=== PATIENT | male | born 1965 | race Caucasian/White ===

== ENCOUNTER 2017-01-02 17:27 | Emergency (ER) | payer OTHER ==
--- NOTE | ~2017-01-02 | ER ---
PATIENT'S NAME: NAE MURRELL [facility] AGE: 51 Y [address] ROOM: [place] [id number] LOCATION: [facility] ADMIT DATE: 01/02/2017 ER/Outpatient Report DISCHARGE DATE: 01/02/2017 FAMILY PHYSICIAN: Devan Buckley MD ATTENDING PHYSICIAN: Bonifacio Lees HISTORY OF PRESENT ILLNESS: This patient is a 51-year-old male, who comes in with heat exhaustion. Lightheaded, generalized weakness with headache. The patient saw Dr. Lees initially. See Dr. Lees's dictation in regard to the chief complaint, history of present illness, past medical history, physical exam. Dr. Lees transferred the patient's care to me at shift change. Dr. Lees asked me to follow up with the patient's laboratory studies, results, final diagnosis, and treatment plan. The patient was started on IV normal saline hydration. The patient received 2 L of normal saline in the emergency department. The patient's CMS was normal except for a slightly elevated sodium 147, elevated chloride of 117, low potassium of 3.2, elevated glucose 115, low calcium of 8.3. White count was 6100, 64 segs, 31 lymphs, 4 monos, 1 eosinophil. Hemoglobin is 13.1 with hematocrit 37.6, platelet count is 157,000. IMPRESSION: Heat exhaustion. PLAN: The patient was hydrated. He was given 2 L normal saline IV in the emergency room. The patient was able to stand, walk, felt markedly improved. Discharged home. Observation. Activity as tolerated. Fluids. Good hydration. Diet as tolerated. Rest. Continue present home medications and care. Follow up with personal physician as needed. MD CARIN DOUGLAS/modl /[id number] d: 01/02/172036 t: 01/11/171823, OUTPATIENT REPORT
--- NOTE | ~2017-01-02 | ER ---
PATIENT'S NAME: NYASIA NAE [facility] AGE: 51 Y [address] ROOM: [place] [address] LOCATION: ED ADMIT DATE: 01/02/2017 ER/Outpatient Report DISCHARGE DATE: 01/02/2017 FAMILY PHYSICIAN: Devan Buckley MD ATTENDING PHYSICIAN: Bonifacio Torrez CHIEF COMPLAINT: Heat illness. HISTORY OF PRESENT ILLNESS: The patient drove from [place] to [place] today. This afternoon, he had spent 3 or 4 hours outside working. He has only had junk food and pop today. He began to feel extremely weak and dizzy and thus called the ambulance. He arrives by ambulance to the emergency department from [place]. He denies any particular medical history other than prior closed head injury and the issues stemming from that. SOCIAL HISTORY: Denies any smoking, alcohol, or drug use. ALLERGIES: PENICILLIN AND KEFLEX. MEDICATIONS: Sertraline. REVIEW OF SYSTEMS: All systems reviewed and negative except as noted in the HPI. PHYSICAL EXAMINATION: VITAL SIGNS: Blood pressure 176/91, pulse 82, respiratory rate is 20, temperature 96.2, rectal SpO2 is 97% on room air. GENERAL: Age-appropriate male. No obvious pain or distress. Tired appearance. NEURO: The patient is awake and alert. GCS is 15. No focal deficits. No asymmetry on exam. No abnormal cognition. HEENT: Normocephalic and atraumatic. Eyes are PERRL. Oropharynx is slightly dry. No erythema or exudates. NECK: Supple. Trachea is midline. CHEST: Heart is regular rate and rhythm with no murmurs. LUNGS: Clear to auscultation bilaterally. No rhonchi, wheezes, or rales. ABDOMEN: Soft, nontender, and nondistended. No rebound or guarding. BACK: Back is normal to inspection and palpation. EXTREMITIES: Cool and diaphoretic, but otherwise well-perfused with brisk capillary refill. PATIENT'S NAME: [facility] AGE: 51 Y [address] ROOM: [place] [address] LOCATION: ED ADMIT DATE: 01/02/2017 ER/Outpatient Report DISCHARGE DATE: 01/02/2017 FAMILY PHYSICIAN: Devan Buckley MD ATTENDING PHYSICIAN: Bonifacio Torrez SKIN: Clean and intact. LABORATORY DATA AND X-RAYS: Labs and x-rays are pending. IMPRESSION: Likely heat exhaustion. EMERGENCY DEPARTMENT COURSE: The patient was seen and evaluated. Continued EMS liter, he was given a second liter. His core temperature is not elevated. He is not having heat stroke. Anticipate home if appropriate labs. No imaging is required at this time. Please see dictation from Dr. Hall for completion of ER encounter. BONIFACIO TORREZ MD JH/sarahl /[id number] d: 01/03/17 1038 t: 01/04/17 1125, OUTPATIENT REPORT
[2017-01-02 17:56] LABS: BASOPHIL % 0.3 %; EOSINOPHIL % 0.7 %; HEMATOCRIT 37.6 % (37.0-53.0); HEMOGLOBIN 13.1 g/dL (12.0-17.0); IMMATURE GRANULOCYTE % 0.5 %; LYMPHOCYTE # 1.9 K/uL (0.8-4.0); LYMPHOCYTE % 30.9 %; MCH 31.6 pg (27.0-34.0); MCHC 34.8 gm/dL (32.0-36.5); MCV 90.8 fl (83.0-98.0); MONOCYTE # 0.2 K/uL (0.0-1.0); MONOCYTE % 3.5 %; MPV 9.6 fl (9.4-12.4); NEUTROPHIL # (ANC) 3.9 K/uL (1.4-9.0); NEUTROPHIL % 64.1 %; NRBC % 0 /100WBC (0-0.00); PLATELET COUNT 157 K/uL (150-450); RBC 4.14 M/uL (4.00-6.00); RDW-CV 12.7 % (11.9-14.6); WBC 6.1 K/uL (4.0-11.0)
[2017-01-02 18:12] LABS: ALBUMIN 3.8 gm/dL (3.5-5.0); ALK PHOS 62 IU/L (33-138); ALT 57 IU/L (12-78); ANION GAP 12.2 (10.0-19.0); AST 33 IU/L (10-40); BLOOD UREA NITROGEN 14 mg/dL (6-24); CALCIUM 8.3 mg/dL (8.5-10.5); CHLORIDE 117 mMol/L (96-110); CO2 21 mMol/L (22-32); CREATININE 1.2 mg/dL (0.6-1.3); ESTIMATED GFR (MDRD EQUATION) > 60; POTASSIUM 3.2 mMol/L (3.7-5.1); SODIUM 147 mMol/L (135-145); TOTAL BILIRUBIN 0.4 mg/dL (0.0-1.5); TOTAL PROTEIN 6.7 g/dL (6.0-8.4)
== END 2017-01-02 19:11 | disposition disaster alternative care site (69) ==
LOC: GMED 17:27
PROVIDERS: Emergency Medicine
DX: T67.5XXA Heat exhaustion, unspecified, initial encounter (principal); Z79.899 Other long term (current) drug therapy; Z87.828 Personal history of other (healed) physical injury and trauma; Z88.0 Allergy status to penicillin; Z88.1 Allergy status to other antibiotic agents; X30.XXXA Exposure to excessive natural heat, initial encounter
CPT/HCPCS: J7030